=== PATIENT | female | born 1965 | race African-American/Black ===

== ENCOUNTER 2016-08-17 03:06 | Emergency (ER) | payer MEDICAID ==
[~2016-08-17] VITALS: Ht 157.5 cm; Wt 85.0 kg
[2016-08-17 03:26] VITALS: BP 109/74
== END 2016-08-17 08:08 | disposition left against medical advice (07) ==
LOC: ER 08:07
DX: M79.622 Pain in left upper arm (principal); Z53.21 Procedure and treatment not carried out due to patient leaving prior to being seen by health care provider

== ENCOUNTER 2017-04-06 03:27 | Emergency (ER) | payer MEDICAID ==
[~2017-04-06] VITALS: Ht 157.5 cm; Wt 87.0 kg
[2017-04-06 03:42] VITALS: BP 133/74
== END 2017-04-06 07:30 | disposition left against medical advice (07) ==
LOC: ER 03:27
DX: R51 Headache (principal); Z53.21 Procedure and treatment not carried out due to patient leaving prior to being seen by health care provider